=== PATIENT | female | born 1990 | race Caucasian/White ===

== ENCOUNTER 2018-01-30 19:48 | Inpatient (IN) | payer OTHER ==
[~2018-01-30] VITALS: Ht 177.8 cm; Wt 116.6 kg
[2018-01-30] MEDS ORDERED: PREN-546 PO (20:31)
[2018-01-30 20:34] VITALS: BP 121/68
[2018-01-30] MEDS ORDERED: NALBUPHINE 10 MG/ML AMP IVP PRN (20:45)
[2018-01-30] MEDS ORDERED: PROMETHAZINE 25 MG/ML VIAL IVP PRN (20:45)
[2018-01-30] MEDS ORDERED: OXYTOCIN 10 UNITS/ML VIAL IM PRN (20:45)
[2018-01-30] MEDS ORDERED: OXYTOCIN 20 UNITS in LACTATED RINGERS 1,000 ML IV SCH (20:45)
[2018-01-30 21:27] LABS: BASOPHILS % (AUTO) 0.2 % (0.0-2.0); EOSINOPHILS # (AUTO) 0.1 K/uL (0-0.4); EOSINOPHILS % (AUTO) 0.5 % (0.0-4.0); HEMATOCRIT 31.6 % (36-48); HEMOGLOBIN 10.3 g/dL (12.0-16.0); LYMPHOCYTES # (AUTO) 2.1 K/uL (2.5-16.5); LYMPHOCYTES % (AUTO) 18.9 % (20.5-51.1); MEAN CORPUSCULAR HEMOGLOBIN 27 pg (27-31); MEAN CORPUSCULAR HGB CONC 33 g/dL (33-37); MEAN CORPUSCULAR VOLUME 82.6 fL (80-94); MONOCYTES # (AUTO) 0.6 K/uL (0.8-1.0); MONOCYTES % (AUTO) 5.2 % (1.7-9.3); NEUTROPHILS # (AUTO) 8.4 K/uL (1.8-7.7); NEUTROPHILS % (AUTO) 75.2 % (42.2-75.2); PLATELET COUNT (AUTO) 214 K/uL (140-450); RED BLOOD CELL COUNT(AUTO) 3.83 MIL/uL (4.20-5.40); WHITE BLOOD COUNT (AUTO) 11.2 K/uL (4.8-10.8)
[2018-01-30 21:38] LABS: ANION GAP 12.5 (8-16); CARBON DIOXIDE 23.4 mmol/L (21-32); CREATININE 0.5 mg/dL (0.6-1.3); POTASSIUM 3.9 mmol/L (3.5-5.1)
[2018-01-30 21:45] LABS: ALBUMIN 2.4 g/dL (3.4-5.0); TOTAL BILIRUBIN 0.2 mg/dL (0.0-1.0)
[2018-01-30] MEDS: LACTATED RINGERS 1,000 ML IV SCH (21:58)
[2018-01-30] MEDS ORDERED: MISOPROSTOL 25 MCG TAB ONE (22:44)
[2018-01-30] MEDS: MISOPROSTOL 25 MCG TAB VG PRN (22:45)
[2018-01-31] MEDS: LACTATED RINGERS 1,000 ML IV SCH ×3 (01:34→08:04)
[2018-01-31] MEDS ORDERED: MISOPROSTOL 25 MCG TAB ONE (03:10)
[2018-01-31] MEDS: MISOPROSTOL 25 MCG TAB VG PRN (03:15)
[2018-01-31] MEDS ORDERED: NALBUPHINE 10 MG/ML AMP ONE (06:29)
[2018-01-31] MEDS ORDERED: PROMETHAZINE 25 MG/ML VIAL ONE (06:29)
--- NOTE | 2018-01-31 06:35 | NUR ---
PATIENT HAS BEEN SCREENED AND CATEGORIZED LOW NUTRITION RISK. PATIENT WILL BE SEEN WITHIN 7 DAYS OF ADMISSION. 02/05/18 CARLOS CHARLES MS, RDN
[2018-01-31] MEDS ORDERED: BUPIVACAINE 0.125%/NS PREMIX 250 ML ONE (07:25)
[2018-01-31] MEDS ORDERED: METHYLERGONOVINE 0.2 MG/ML AMP ONE (08:23)
[2018-01-31] MEDS ORDERED: OXYTOCIN 10 UNITS/ML VIAL ONE (08:23)
[2018-01-31] MEDS ORDERED: MEASLES, MUMPS, AND RUBELLA 1 VIAL SQVAC PRN (09:05)
[2018-01-31] MEDS ORDERED: TEMAZEPAM 15 MG CAP PO PRN (09:05)
[2018-01-31] MEDS ORDERED: METHYLERGONOVINE 0.2 MG/ML AMP IM PRN (09:05)
[2018-01-31] MEDS ORDERED: oxyCODONE/APAP 5/325 MG 1 TAB TAB PO PRN (09:05)
[2018-01-31] MEDS ORDERED: HYDROcodone/APAP 5/325 MG 1 TAB TAB PO PRN (09:05)
[2018-01-31] MEDS ORDERED: IBUPROFEN 800 MG TAB PO PRN (09:05)
[2018-01-31] MEDS ORDERED: BENZOCAINE/MENTHOL 20%-0.5% 60 GM CAN TP PRN (09:05)
[2018-01-31] MEDS ORDERED: OXYTOCIN 10 UNITS/ML VIAL IM PRN (09:05)
[2018-01-31] MEDS ORDERED: DOCUSATE SOD/SENNA 50/8.6 MG 1 TAB PO SCH (21:00)
[2018-02-01 06:44] LABS: HEMOGLOBIN 9.9 g/dL (12.0-16.0)
[2018-02-01] MEDS ORDERED: BETAMETH ACET/BETAMETH NA PH 30 MG/5 ML VIAL IM ONE (06:48)
[2018-02-01] MEDS ORDERED: IBUP-2217 PO (11:29)
== END 2018-02-01 15:16 | disposition home or self-care (01) | DRG 560 ==
LOC: MLD 19:48 → MFCC 01-31 15:15
PROVIDERS: ADMIT Obstetrics & Gynecology; ATTEND Obstetrics & Gynecology
PROC: 10E0XZZ Delivery of Products of Conception, External Approach (ICD-10-PCS; principal; 2018-01-31)
PROC: 0HQ9XZZ Repair Perineum Skin, External Approach (ICD-10-PCS; 2018-01-31)
DX: O24.429 Gestational diabetes mellitus in childbirth, unspecified control (principal); O70.0 First degree perineal laceration during delivery; Z37.0 Single live birth; Z3A.39 39 weeks gestation of pregnancy; Z80.3 Family history of malignant neoplasm of breast; Z80.0 Family history of malignant neoplasm of digestive organs; Z82.49 Family history of ischemic heart disease and other diseases of the circulatory system
CPT/HCPCS: 36415; 51702; 59200; 59409; 80053; 82948; 85018; 85025; 86592; 86886; 86900; 86901; J0702; J2210; J2300; J2550; J2590; J3490; J7120